=== PATIENT | female | born 1980 | race Caucasian/White ===

== ENCOUNTER → 2025-07-16 12:58 | Outpatient (BNVA) | payer OTHER, SELFPAY | PROVIDERS: Visit Provider Emergency Medicine | DX: S16.1XXA Strain of muscle, fascia and tendon at neck level, initial encounter (principal); S29.012A Strain of muscle and tendon of back wall of thorax, initial encounter; W01.0XXA Fall on same level from slipping, tripping and stumbling without subsequent striking against object, initial encounter; Z02.79 Encounter for issue of other medical certificate | CPT/HCPCS: 99202 ==